=== PATIENT | female | born 1995 | race Caucasian/White ===

== ENCOUNTER 2017-09-28 10:19 | Emergency (ER) | payer OTHER ==
[~2017-09-28] VITALS: Ht 165.1 cm; Wt 56.7 kg
--- NOTE | 2017-09-28 10:50 | NUR ---
pt refused hcg test, md aware, pt signed waiver.
[2017-09-28] MEDS ORDERED: HYDROCODONE/APAP 5-325MG TABLET PO ONE (11:29)
[2017-09-28] MEDS ORDERED: HYDROCODONE/APAP 5-325MG TABLET ONE (11:34)
[2017-09-28] MEDS ORDERED: KETOROLAC TROMETHAMINE 60 MG INJ IM ONE ×2 (12:00→12:10)
--- NOTE | 2017-09-28 12:11 | NUR ---
Patient discharged to home in stable conditon. Written and verbal after care instructions given. Patient verbalizes understanding of instructions. (pt. name) ambulatory with a steady gait
[2017-09-28 12:12] VITALS: BP 147/84
== END 2017-09-28 12:12 | disposition home or self-care (01) ==
LOC: ER 10:19
DX: S16.1XXA Strain of muscle, fascia and tendon at neck level, initial encounter (principal); V43.52XA Car driver injured in collision with other type car in traffic accident, initial encounter; Y93.89 Activity, other specified; Y92.410 Unspecified street and highway as the place of occurrence of the external cause; Y99.8 Other external cause status
CPT/HCPCS: 70450; 72040; A4663; J1885